=== PATIENT | female | born 1975 | race Caucasian/White ===

== ENCOUNTER 2020-08-01 17:49 | Emergency (ER) | payer BC, OTHER ==
[2020-08-01 18:27] LABS: #Basophils 0.2 thou/uL (0.0-0.2); #Eosinphils 0.4 thou/uL (0.0-0.7); #Lymphocytes 3.7 thou/uL (1.20-3.40); #Monocytes 0.9 thou/uL (0.11-0.59); #Neutrophils 6.9 thou/uL (1.40-6.50); %Basophils 1.5 % (0.0-1.0); %Eosinophils 2.9 % (0.0-10.0); %Lymphocytes 30.6 % (21.0-51.0); %Monocytes 7.5 % (0.0-10.0); %Neutrophils 57.5 % (42.0-75.0); Mean Corpuscular HGB CONC 33.5 g/dL (32.0-36.0); Mean Corpuscular Hemoglobin 29.9 pg (27.0-31.0); Mean Corpuscular Volume 89.2 fL (78.0-98.0); Mean Platelet Volume 6.3 fL (7.4-10.4); Platelet Count 362 thou/uL (130-400); RBC Distribution Width 12.7 % (11.5-14.5); Red Blood Cell (RBC) Count 4.68 mill/uL (4.20-5.40)
[2020-08-01 18:44] LABS: ALT (SGPT) 39 U/L (8-55); AST (SGOT) 36 U/L (5-34); Albumin 4.4 g/dL (3.5-5.0); Alkaline Phosphatase 95 U/L (40-110); Anion Gap 14 mmol/L (10-20); BUN (Urea Nitrogen) 7 mg/dL (7.0-18.7); Bilirubin, Total 0.3 mg/dL (0.2-1.2); Calc. Creatinine Clearance 0 mL/min (70-130); Calcium 9.2 mg/dL (7.8-10.44); Carbon Dioxide 26 mmol/L (22-29); Chloride 100 mmol/L (98-107); Globulin 3.2 g/dL (2.4-3.5); Glucose 196 mg/dL (70-105); Lipase 71 U/L (8-78); Potassium 3.6 mmol/L (3.5-5.1); Protein, Total 7.6 g/dL (6.0-8.3); Sodium 136 mmol/L (136-145)
--- NOTE | 2020-08-02 09:42 | RAD ---
PORTABLE CHEST: DATE: 08/01/2020. FINDINGS: An AP portable film at 1841 is compared with a 09/03/2009 study. The heart is normal in size and the lungs are clear. There is no vascular congestion or edema. The mediastinum appears normal. IMPRESSION: No acute thoracic findings. POS: HOME
== END 2020-08-01 19:12 | disposition home or self-care (01) ==
LOC: BURERS 17:49
DX: R07.89 Other chest pain (principal); K21.9 Gastro-esophageal reflux disease without esophagitis; E11.9 Type 2 diabetes mellitus without complications; Z86.718 Personal history of other venous thrombosis and embolism; Z79.899 Other long term (current) drug therapy; Z79.82 Long term (current) use of aspirin; Z79.4 Long term (current) use of insulin
CPT/HCPCS: 71045; 80053; 83690; 84484; 85025; 85379; 93005; 94760

== ENCOUNTER 2022-05-07 20:10 | Emergency (ER) | payer OTHER ==
[2022-05-07] MEDS ORDERED: Iopamidol 370 76% 100 ML VIAL FS ONE (20:11)
[2022-05-07 21:07] LABS: #Basophils 0.2 thou/uL (0.0-0.2); #Eosinphils 0.3 thou/uL (0.0-0.7); #Lymphocytes 2.8 thou/uL (1.20-3.40); #Monocytes 0.8 thou/uL (0.11-0.59); #Neutrophils 7.9 thou/uL (1.40-6.50); %Basophils 1.4 % (0.0-1.0); %Eosinophils 2.7 % (0.0-10.0); %Lymphocytes 23.2 % (21.0-51.0); %Monocytes 6.8 % (0.0-10.0); Hemoglobin 13.3 g/dL (12.0-16.0); Mean Corpuscular HGB CONC 32.1 g/dL (32.0-36.0); Mean Corpuscular Hemoglobin 28.6 pg (27.0-31.0); Mean Corpuscular Volume 89.2 fL (78.0-98.0); Mean Platelet Volume 6.5 fL (7.4-10.4); Platelet Count 451 thou/uL (130-400); RBC Distribution Width 13.6 % (11.5-14.5); Red Blood Cell (RBC) Count 4.63 mill/uL (4.20-5.40); White Blood Cell (WBC) Count 11.9 thou/uL (4.8-10.8)
[2022-05-07] MEDS ORDERED: Morphine 10 MG/ML VIAL ONE (21:11)
[2022-05-07] MEDS ORDERED: Metoclopramide HCl 10 MG TAB ONE (21:12)
[2022-05-07] MEDS ORDERED: diphenhydrAMINE 50 MG/ML VIAL ONE (21:12)
[2022-05-07] MEDS ORDERED: Metoclopramide HCl 10 MG/2 ML VIAL ONE (21:13)
[2022-05-07 21:28] LABS: ALT (SGPT) 55 U/L (8-55); AST (SGOT) 42 U/L (5-34); Albumin 4.4 g/dL (3.5-5.0); Alkaline Phosphatase 101 U/L (40-110); Anion Gap 14 mmol/L (10-20); BUN (Urea Nitrogen) 7 mg/dL (7.0-18.7); Bilirubin, Total 0.4 mg/dL (0.2-1.2); Calc. Creatinine Clearance 0 mL/min (70-130); Calcium 9.3 mg/dL (7.8-10.44); Carbon Dioxide 25 mmol/L (22-29); Chloride 102 mmol/L (98-107); Estimated GFR 89; Globulin 3.3 g/dL (2.4-3.5); Glucose 236 mg/dL (70-105); Lipase 46 U/L (8-78); Protein, Total 7.7 g/dL (6.0-8.3); Sodium 137 mmol/L (136-145)
== END 2022-05-07 23:50 | disposition home or self-care (01) ==
LOC: BURERS 20:10
DX: K59.00 Constipation, unspecified (principal); K21.9 Gastro-esophageal reflux disease without esophagitis; Z86.718 Personal history of other venous thrombosis and embolism; E11.9 Type 2 diabetes mellitus without complications; I10 Essential (primary) hypertension; Z79.84 Long term (current) use of oral hypoglycemic drugs; Z79.899 Other long term (current) drug therapy
CPT/HCPCS: 74177; 80053; 83605; 83690; 85025; 96361; 96374; 96375; J1200; J2270; J2765; Q9967

== ENCOUNTER 2023-02-08 10:26 | Emergency (ER) | payer OTHER ==
[~2023-02-08 10:26] MED LIST: Iopamidol 370 76% 100 ML VIAL ONE
[2023-02-08] MEDS ORDERED: Morphine 4 MG/ML VIAL ONE (10:51)
[2023-02-08] MEDS ORDERED: Ondansetron PF 4 MG/2 ML Vial ONE (10:52)
[2023-02-08] MEDS ORDERED: Pantoprazole 40 MG VIAL ONE (10:52)
[2023-02-08 10:58] LABS: #Basophils 0.1 thou/uL (0.0-0.2); #Eosinphils 0.4 thou/uL (0.0-0.7); #Lymphocytes 2.6 thou/uL (1.20-3.40); #Monocytes 0.7 thou/uL (0.11-0.59); #Neutrophils 6.6 thou/uL (1.40-6.50); %Eosinophils 3.4 % (0.0-10.0); %Lymphocytes 25.1 % (21.0-51.0); %Neutrophils 63.5 % (42.0-75.0); Bilirubin Negative (Negative); Blood, Urine Negative (Negative); Clarity Clear (Clear); Glucose, Urine (Dipstick) Negative (Negative); Hemoglobin 12.9 g/dL (12.0-16.0); Ketone, Urine Negative (Negative); Leukocyte Negative (Negative); Mean Corpuscular HGB CONC 32.3 g/dL (32.0-36.0); Mean Corpuscular Hemoglobin 27.1 pg (27.0-31.0); Mean Corpuscular Volume 83.8 fl (78.0-98.0); Mean Platelet Volume 5.3 fL (7.4-10.4); Nitrite Negative (Negative); Platelet Count 401 10x3/uL (130-400); Protein, Urine (Dipstick) Negative (Neg-Trace); RBC Distribution Width 13.4 % (11.5-14.5); Red Blood Cell (RBC) Count 4.75 mill/uL (4.20-5.40); Urobilinogen 0.2 mg/dL (Less than 2); White Blood Cell (WBC) Count 10.4 10x3/uL (4.8-10.8)
[2023-02-08 11:05] LABS: Bacteria/HPF None Seen HPF (None Seen); CAUTI Indications for Culture Dysuria,urgency,freq; RBC/HPF None Seen HPF (0-3); Squamous Epithelial 0-3 HPF (0-3); WBC/HPF None Seen HPF (0-3)
[2023-02-08 11:06] LABS: Urine Culture Reflex No No
[2023-02-08 11:14] LABS: ALT (SGPT) 20 U/L (8-55); AST (SGOT) 15 U/L (5-34); Albumin 4.3 g/dL (3.5-5.0); Alkaline Phosphatase 93 U/L (40-110); Anion Gap 14 mmol/L (10-20); BUN (Urea Nitrogen) 7 mg/dL (7.0-18.7); Bilirubin, Total 0.4 mg/dL (0.2-1.2); Calc. Creatinine Clearance 0 mL/min (70-130); Calcium 9.7 mg/dL (7.8-10.44); Carbon Dioxide 26 mmol/L (22-29); Chloride 101 mmol/L (98-107); Estimated GFR 89; Globulin 3.2 g/dL (2.4-3.5); Glucose 202 mg/dL (70-105); Lipase 53 U/L (8-78); Potassium 4.2 mmol/L (3.5-5.1); Protein, Total 7.5 g/dL (6.0-8.3); Sodium 137 mmol/L (136-145)
== END 2023-02-08 12:48 | disposition home or self-care (01) ==
LOC: BURERS 10:26
DX: R10.13 Epigastric pain (principal); E11.9 Type 2 diabetes mellitus without complications; I10 Essential (primary) hypertension; Z86.718 Personal history of other venous thrombosis and embolism; Z79.4 Long term (current) use of insulin; Z79.899 Other long term (current) drug therapy
CPT/HCPCS: 71045; 74177; 80053; 81001; 83690; 84484; 85025; 93005; 96361; 96374; 96375; C9113; J2270; J2405; Q9967